=== PATIENT | male | born 1980 | race Caucasian/White ===

== ENCOUNTER 2017-02-04 21:44 | Emergency (ER) | payer SELFPAY ==
[~2017-02-04 21:44] MED LIST: NO CURRENT MEDS; PRILO PO
== END 2017-02-04 21:45 | disposition home or self-care (01) ==
LOC: ER 21:44
PROC: 0H94XZZ Drainage of Neck Skin, External Approach (ICD-10-PCS; principal; 2017-02-04)
DX: L02.11 Cutaneous abscess of neck (principal); F17.200 Nicotine dependence, unspecified, uncomplicated
CPT/HCPCS: 99283